=== PATIENT | female | born 1990 | race Two or more races ===

== ENCOUNTER 2024-02-12 15:29 | Emergency (ER) | payer OTHER ==
[2024-02-12 15:36] VITALS: BP 107/70; PULSE 77; RESP 18; TEMP 98.5; BMI 24.7
[2024-02-12] MEDS ORDERED: METOCLOPRAMIDE HCL INJECTION 10 MG/2 ML VIAL ONE (18:03)
[2024-02-12] MEDS ORDERED: ACETAMINOPHEN INJECTION 100 ML IVPB ONE (18:03)
[2024-02-12] MEDS: ACETAMINOPHEN 1000 MG/100 ML BAG IVPB ONE (18:22)
[2024-02-12] MEDS: METOCLOPRAMIDE HCL INJECTION 10 MG/2 ML VIAL IVPB ONE (18:22)
[2024-02-12] MEDS: SODIUM CHLORIDE 0.9% 500 ML INFUS.BAG IV ONE (18:22)
[2024-02-12 18:47] LABS: BASO % 0.2 % (0-2.0); EOS % 1.3 % (0-4.5); HEMATOCRIT 38.3 % (32.4-45.2); HEMOGLOBIN 12.9 GM/dL (10.7-15.3); LYMPH % 43.6 % (8-40); MCH 33.2 pg (25.7-33.7); MCHC 33.8 g/dl (32.0-36.0); MEAN CELL VOLUME 98.2 fl (80-96); MEAN PLT VOLUME 8.1 fl (7.5-11.1); MONO % 9.5 % (3.8-10.2); NEUT % 45.4 % (42.8-82.8); PLATELET COUNT 289 10^3/uL (134-434); RDW 12.7 % (11.6-15.6)
[2024-02-12 19:16] LABS: POTASSIUM 3.9 mmol/L (3.5-5.1)
[2024-02-12 19:19] LABS: BLOOD UREA NITROGEN 13.5 mg/dL (7-18); CALCIUM 8.9 mg/dL (8.5-10.1)
[2024-02-12 19:22] LABS: CREATININE 0.8 mg/dL (0.55-1.3)
[2024-02-12 19:24] LABS: BILIRUBIN,TOTAL 0.3 mg/dL (0.2-1); TOT PROT 7.4 g/dl (6.4-8.2)
[2024-02-12 20:22] LABS: ERYTHROCYTE SEDIMENTATION RATE 18 mm/hr (0-20)
[2024-02-12] MEDS ORDERED: KETOROLAC TROMETHAMINE 15 MG/ML VIAL ONE (20:59)
[2024-02-12] MEDS: KETOROLAC TROMETHAMINE 15 MG/ML VIAL IVPUSH ONE (21:04)
== END 2024-02-12 21:05 | disposition home or self-care (01) ==
LOC: JER 15:29
PROC: 3E033NZ Introduction of Analgesics, Hypnotics, Sedatives into Peripheral Vein, Percutaneous Approach (ICD-10-PCS; principal; 2024-02-12)
PROC: 3E0333Z Introduction of Anti-inflammatory into Peripheral Vein, Percutaneous Approach (ICD-10-PCS; 2024-02-12)
PROC: 3E033GC Introduction of Other Therapeutic Substance into Peripheral Vein, Percutaneous Approach (ICD-10-PCS; 2024-02-12)
DX: R51.9 Headache, unspecified (principal); R42 Dizziness and giddiness; R11.0 Nausea; H53.8 Other visual disturbances
CPT/HCPCS: 36415; 70450-TC; 80053; 84703; 85025; 85651; 99284-25; J0131